=== PATIENT | female | born 1960 | race Two or more races ===

== ENCOUNTER 2023-12-07 20:18 | Emergency (ER) | payer MEDICARE, MEDICAID ==
[~2023-12-07] VITALS: Ht 154.9 cm; Wt 83.5 kg
[2023-12-08] MEDS: KETOROLAC TROMETH 30 MG/ML 1ML VIAL IM ONE (00:09)
[2023-12-08 00:35] VITALS: BP 139/79; PULSE 78; RESP 18; TEMP 98.4
[2023-12-08 00:56] VITALS: O2SAT 99
== END 2023-12-08 00:50 | disposition home or self-care (01) ==
LOC: ER 20:18
DX: M25.561 Pain in right knee (principal); I10 Essential (primary) hypertension; J45.909 Unspecified asthma, uncomplicated
CPT/HCPCS: 29505; 73562; 96372; 99283; J1885